=== PATIENT | male | born 1955 | race Caucasian/White ===

== ENCOUNTER 2020-06-24 15:46 | Outpatient (CLI) | payer MEDICARE ==
[2020-06-24 20:16] LABS: BASOPHILS # (AUTO) 0.1 10^3/uL (0.0-0.1); EOSINOPHILS # (AUTO) 0.1 10^3/uL (0.0-0.7); HGB - HEMOGLOBIN 14.3 g/dL (14.0-18.0); LYMPHOCYTES # (AUTO) 1.7 10^3/uL (1.5-3.5); LYMPHOCYTES % (AUTO) 27.2 %; MEAN CORPUSCULAR HGB CONC 33.1 g/dL (32.0-36.0); MEAN CORPUSCULAR VOLUME 96.6 fL (80.0-94.0); MEAN PLATELET VOLUME 11.1 fL (7.4-11.4); MONOCYTES # (AUTO) 0.6 10^3/uL (0.0-1.0); MONOCYTES % (AUTO) 8.8 %; NEUTROPHILS # (AUTO) 3.9 10^3/uL (1.5-6.6); NEUTROPHILS % (AUTO) 61.8 %; PLT - PLATELET COUNT 252 10^3/uL (130-450); RED BLOOD COUNT 4.47 10^6/uL (4.70-6.10); RED CELL DISTRIBUTION WIDTH 12.9 % (12.0-15.0); WHITE BLOOD COUNT 6.2 x10^3/uL (4.8-10.8)
[2020-06-24 20:30] LABS: ALBUMIN 4.8 g/dL (3.2-5.5); ALBUMIN/GLOBULIN RATIO 1.8 (1.0-2.2); ALKALINE PHOSPHATASE 55 IU/L (42-121); ALT ALANINE AMINOTRANSFERASE 21 IU/L (10-60); AST ASPARTATE AMINOTRANSFERASE 21 IU/L (10-42); BILIRUBIN,TOTAL 1.6 mg/dL (0.2-1.0); BUN - BLOOD UREA NITROGEN 19 mg/dL (6-20); CARBON DIOXIDE - CO2 27 mmol/L (21-32); CHLORIDE 102 mmol/L (101-111); CHOL/HDL RATIO 3.4 (<5.0); CHOLESTEROL 204 mg/dL; CREATININE 1.1 mg/dL (0.6-1.2); GLUCOSE 96 mg/dL (70-100); HDL CHOLESTEROL 60 mg/dL; LDL CHOLESTEROL,CALCULATED 121 mg/dL; SODIUM 140 mmol/L (135-145); TOTAL PROTEIN 7.5 g/dL (6.7-8.2); VLDL CHOLESTEROL 23 mg/dL
== END 2020-06-24 15:47 | disposition home or self-care (01) ==
LOC: LAB.S 15:46
PROVIDERS: ATTEND Family Medicine
DX: Z00.00 Encounter for general adult medical examination without abnormal findings (principal); I73.00 Raynaud's syndrome without gangrene; I10 Essential (primary) hypertension; Z12.5 Encounter for screening for malignant neoplasm of prostate
CPT/HCPCS: 36415; 80053; 80061; 84443; 85025; G0103; 83721; 84153

== ENCOUNTER 2021-07-05 16:14 | Outpatient (CLI) | payer MEDICARE ==
--- NOTE | 2021-07-05 22:49 | Ultrasound Report ---
PROCEDURE: Aorta Screening INDICATIONS: HISTORY OF SMOKING TECHNIQUE: Real time scanning was performed of the aorta and iliac arteries, with image documentatio n. COMPARISON: None FINDINGS: Aorta: Proximal aortic diameter measures 2.7 x 2.7 cm. Mid-aorta measures 1.9 x 2.3 cm. Distal aor tic diameter is 1.7 x 1.8 cm. Iliac arteries: Right common iliac artery measures 1.2 x 1.2 cm. Left common iliac artery measures 1.5 x 1.6 cm. Calcified atherosclerotic plaques are seen scattered throughout abdominal aorta and bilateral proxima l common iliac arteries. IMPRESSION: No evidence of abdominal aortic aneurysm. Moderate atherosclerotic disease throughout the abdominal aorta and visualized bilateral iliac arteri es. Reviewed by: Dominik Puri MD on 07/05/2021 10:48 PM PST Approved by: Dominik Puri MD on 07/05/2021 10:48 PM PST Station ID: [id number]
== END 2021-07-05 16:15 | disposition home or self-care (01) ==
LOC: DI 16:14
PROVIDERS: ATTEND Registered Nurse
DX: Z13.6 Encounter for screening for cardiovascular disorders (principal); I70.0 Atherosclerosis of aorta; Z87.891 Personal history of nicotine dependence

== ENCOUNTER 2022-04-06 07:58 | Outpatient (CLI) | payer MEDICARE ==
[2022-04-06 14:13] LABS: BASOPHILS % (AUTO) 0.7 %; EOSINOPHILS # (AUTO) 0.1 10^3/uL (0.0-0.7); EOSINOPHILS % (AUTO) 1.4 %; HCT - HEMATOCRIT 41.9 % (42.0-52.0); HGB - HEMOGLOBIN 13.9 g/dL (14.0-18.0); LYMPHOCYTES # (AUTO) 1.5 10^3/uL (1.5-3.5); LYMPHOCYTES % (AUTO) 26.8 %; MEAN CORPUSCULAR HGB CONC 33.2 g/dL (32.0-36.0); MEAN CORPUSCULAR VOLUME 96.3 fL (80.0-94.0); MEAN PLATELET VOLUME 10.7 fL (7.4-11.4); MONOCYTES # (AUTO) 0.7 10^3/uL (0.0-1.0); MONOCYTES % (AUTO) 12.2 %; NEUTROPHILS # (AUTO) 3.3 10^3/uL (1.5-6.6); NEUTROPHILS % (AUTO) 58.5 %; PLT - PLATELET COUNT 316 10^3/uL (130-450); RED BLOOD COUNT 4.35 10^6/uL (4.70-6.10); RED CELL DISTRIBUTION WIDTH 14.2 % (12.0-15.0); WHITE BLOOD COUNT 5.6 x10^3/uL (4.8-10.8)
[2022-04-06 14:24] LABS: ALBUMIN 4.2 g/dL (3.2-5.5); ALBUMIN/GLOBULIN RATIO 1.6 (1.0-2.2); BILIRUBIN,TOTAL 0.8 mg/dL (0.2-1.0); CALCIUM 9.1 mg/dL (8.5-10.3); CREATININE 0.9 mg/dL (0.6-1.2); POTASSIUM 3.8 mmol/L (3.5-5.0); TOTAL PROTEIN 6.8 g/dL (6.7-8.2)
[2022-04-06 14:34] LABS: THYROID STIMULATING HORMONE 3.29 uIU/mL (0.34-5.60)
== END 2022-04-06 07:59 | disposition home or self-care (01) ==
LOC: LAB.S 07:58
PROVIDERS: ATTEND Registered Nurse
DX: R19.7 Diarrhea, unspecified (principal); R11.0 Nausea
CPT/HCPCS: 36415; 80053; 82274; 83690; 84443; 85025